=== PATIENT | female | born 1945 | race Caucasian/White ===

== ENCOUNTER 2019-09-28 13:18 | Day surgery (SDC) | payer MEDICARE ==
[~2019-09-28 13:18] MED LIST: Acetaminophen 500 MG TAB PO PRN; Acetaminophen 500 MG TAB PO SCH; Sodium Chloride 0.9% 1,000 ML IV SCH; Vedolizumab 300 MG in Sodium Chloride 0.9% 250 ML 250 ML IVPB SCH
[2019-09-28] MEDS ORDERED: Sodium Chloride 0.9% 20 ML ONE (13:34)
== END 2019-09-28 15:16 | disposition home or self-care (01) ==
LOC: ONC/OP 13:18
PROVIDERS: ATTEND Internal Medicine Gastroenterology
DX: K51.90 Ulcerative colitis, unspecified, without complications (principal); Z88.0 Allergy status to penicillin; Z88.5 Allergy status to narcotic agent
CPT/HCPCS: 96413; J3380; J7050

== ENCOUNTER 2019-12-13 13:51 | Day surgery (SDC) | payer MEDICARE ==
[2019-12-13 16:19] VITALS: BP 126/66; TEMP 98.4
== END 2019-12-13 16:20 | disposition home or self-care (01) ==
LOC: ONC/OP 13:51
PROVIDERS: ATTEND Internal Medicine Gastroenterology
DX: K51.90 Ulcerative colitis, unspecified, without complications (principal); Z88.0 Allergy status to penicillin; Z88.5 Allergy status to narcotic agent
CPT/HCPCS: 96413

== ENCOUNTER 2019-12-27 13:44 | Day surgery (SDC) | payer MEDICARE ==
[2019-12-27 15:29] VITALS: BP 120/70; TEMP 98.2
== END 2019-12-27 15:57 | disposition home or self-care (01) ==
LOC: ONC/OP 13:44
PROVIDERS: ATTEND Internal Medicine Gastroenterology
DX: K51.90 Ulcerative colitis, unspecified, without complications (principal); Z88.0 Allergy status to penicillin; Z88.5 Allergy status to narcotic agent
CPT/HCPCS: 96413

== ENCOUNTER 2020-01-24 15:16 | Day surgery (SDC) | payer MEDICARE ==
[2020-01-24 16:01] VITALS: BP 115/66; TEMP 98.5
== END 2020-01-24 16:03 | disposition home or self-care (01) ==
LOC: ONC/OP 15:16
PROVIDERS: ATTEND Internal Medicine Gastroenterology
DX: K51.90 Ulcerative colitis, unspecified, without complications (principal); Z88.0 Allergy status to penicillin; Z88.5 Allergy status to narcotic agent
CPT/HCPCS: 96413

== ENCOUNTER 2020-03-20 14:07 | Day surgery (SDC) | payer MEDICARE ==
[2020-03-20] MEDS ORDERED: Sodium Chloride 0.9% 20 ML ONE (14:10)
== END 2020-03-20 15:57 | disposition home or self-care (01) ==
LOC: ONC/OP 14:07
PROVIDERS: ATTEND Internal Medicine Gastroenterology
DX: K51.90 Ulcerative colitis, unspecified, without complications (principal); Z88.0 Allergy status to penicillin; Z88.5 Allergy status to narcotic agent; Z91.011 Allergy to milk products
CPT/HCPCS: 96413

== ENCOUNTER 2020-04-29 11:40 | Observation (INO) | payer MEDICARE ==
[2020-04-29 12:45] LABS: Hemoglobin 13.3 g/dL (12.0-16.0); Mean Corpuscular HGB CONC 31.4 g/dL (32.0-36.0); Mean Corpuscular Hemoglobin 27.5 pg (27.0-31.0); Mean Corpuscular Volume 87.7 fL (78.0-98.0); Mean Platelet Volume 7.8 fL (7.4-10.4); Platelet Count 358 thou/uL (130-400); RBC Distribution Width 12.4 % (11.5-14.5); Red Blood Cell (RBC) Count 4.82 mill/uL (4.20-5.40); White Blood Cell (WBC) Count 16.7 thou/uL (4.8-10.8)
[2020-04-29] MEDS ORDERED: Iopamidol-370 76% 500 ML 1 ML ONE (12:53)
[2020-04-29 13:00] LABS: Band 3 % (5-11); Eosinophils 3 % (0-10); Lymphocytes 32 % (21-51); MDiff Complete? YES; Monocytes 4 % (0-10); Neutrophil 58 % (42-75); RBC Morphology Normal
[2020-04-29 13:11] LABS: ALT (SGPT) 14 U/L (8-55); AST (SGOT) 15 U/L (5-34); Albumin 4.2 g/dL (3.4-4.8); Alkaline Phosphatase 126 U/L (40-110); Anion Gap 12 mmol/L (10-20); BUN (Urea Nitrogen) 16 mg/dL (9.8-20.1); Bilirubin, Total 0.3 mg/dL (0.2-1.2); Calc. Creatinine Clearance 0 mL/min (70-130); Calcium 9.7 mg/dL (7.8-10.44); Carbon Dioxide 24 mmol/L (23-31); Chloride 107 mmol/L (98-107); Estimated GFR-MDRD 73; Glucose 81 mg/dL (83-110); Lipase 48 U/L (8-78); Potassium 3.4 mmol/L (3.5-5.1); Protein, Total 8.2 g/dL (6.0-8.3); Sodium 140 mmol/L (136-145)
[2020-04-29 13:53] LABS: Bilirubin Negative (Negative); Blood, Urine Negative (Negative); Clarity Clear (Clear); Glucose, Urine (Dipstick) Normal (Negative); Leukocyte 250 Leu/uL (Negative); Mucous/LPF Rare LPF (<2+); Nitrite Negative (Negative); Protein, Urine (Dipstick) 10 mg/dL (Neg-Trace); RBC/HPF 0-3 HPF (0-3); Squamous Epithelial 0-3 HPF (0-3); Urobilinogen Normal mg/dL (Less than 2)
[2020-04-29 14:05] LABS: Bacteria/HPF None Seen HPF (None Seen)
--- NOTE | 2020-04-29 15:23 | CT ---
CT OF THE ABDOMEN AND PELVIS WITH IV CONTRAST INDICATION: History of ulcerative colitis and abdominal pain COMPARISON: CT the abdomen dated August 24, 2014 FINDINGS: ABDOMEN: Lung bases: Clear Liver: There is stable mild to moderate intrahepatic and extrahepatic biliary ductal dilatation. No f ocal hepatic lesion is evident. Gallbladder: Surgically absent Pancreas: Minimal prominence of the main pancreatic duct is similar to the comparison study. No focal pancreatic lesion is identified. Adrenal glands: Normal. Spleen: Normal. Kidneys and ureters: Bilateral peripelvic cysts are stable. There is interval enlargement of the simp le cyst involving the superior pole left kidney now measuring 1.6 cm were previously measured 9 mm. Vasculature: Normal. Lymph nodes:No lymphadenopathy. Free fluid in abdomen:No free fluid is evident. PELVIS: Small and large bowel: There is prominent wall thickening involving the rectum and the sigmoid colon, descending colon and a majority of the transverse colon consistent patient's history of ulcerative colitis. Appendix:Normal Bladder: Normal. Rectal and perirectal soft tissues:As above Reproductive structures: Surgically absent Free fluid in pelvis: No free fluid is evident. Lymphadenopathy pelvis: No lymphadenopathy is evident. Osseous structures: There is stable bone island within the left aspect of L3. There is diffuse osteop enia. There is a bony hemangioma within the left aspect of T10 which is stable. There are small bone islands involving the proximal right femur which are stable. There is a 5 mm sclerotic density w ithin the right acetabulum which is increased in prominence from the prior exam likely reflecting an additional bone on that has demonstrated some interval growth. There is scattered degenerative an d osteoarthritic changes. Soft tissues:Normal. IMPRESSION: 1. Mild diffuse proctocolitis consistent patient's history of ulcerative colitis. No drainable fluid collection is demonstrated. 2. Other chronic findings as above
[2020-04-29] MEDS ORDERED: methylPREDNISolone Sod Succ/PF 125 MG/2 ML VIAL ONE (15:32)
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
[2020-04-29] MEDS: Lactated Ringer's 1,000 ML IV SCH (18:00)
[2020-04-29 21:49] VITALS: BMI 32.0
[2020-04-29] MEDS ORDERED: Ondansetron ODT 4 MG TAB PO PRN (21:54)
[2020-04-29] MEDS: Acetaminophen 325 MG TAB PO PRN (23:19)
[2020-04-30] MEDS: Lactated Ringer's 1,000 ML IV SCH ×2 (03:00→12:24)
[2020-04-30] MEDS: Acetaminophen 325 MG TAB PO PRN (05:16)
[2020-04-30 05:44] LABS: #Lymphocytes 2.6 thou/uL (1.20-3.40); #Monocytes 0.4 thou/uL (0.11-0.59); #Neutrophils 10.8 thou/uL (1.40-6.50); %Eosinophils 0.1 % (0.0-10.0); %Lymphocytes 18.8 % (21.0-51.0); %Monocytes 2.8 % (0.0-10.0); %Neutrophils 78.3 % (42.0-75.0); Hemoglobin 12.2 g/dL (12.0-16.0); Mean Corpuscular HGB CONC 31.9 g/dL (32.0-36.0); Mean Corpuscular Hemoglobin 27.6 pg (27.0-31.0); Mean Corpuscular Volume 86.4 fL (78.0-98.0); Mean Platelet Volume 8.3 fL (7.4-10.4); Platelet Count 337 thou/uL (130-400); RBC Distribution Width 12.4 % (11.5-14.5); Red Blood Cell (RBC) Count 4.42 mill/uL (4.20-5.40); White Blood Cell (WBC) Count 13.8 thou/uL (4.8-10.8)
[2020-04-30] MEDS ORDERED: PROMETHAZINE HCL PO PRN (06:11)
[2020-04-30] MEDS ORDERED: Promethazine 25 MG TAB PO PRN (06:14)
--- NOTE | 2020-04-30 06:15 | PDOC.FM ---
- Subjective Subjective: Patient was resting comfortably in bed at the time of evaluation. She continued to endorse mild ABD "pressure", but denied any odilon pain, diarrhea, N/V, chest pain or SOB. - Objective Vital Signs & Weight: Vital Signs (12 hours) Temp Pulse Resp BP Pulse Ox 04/30/20 03:53 97.7 F 69 18 125/74 92 L 04/29/20 23:48 98.3 F 65 18 113/65 96 04/29/20 20:00 96 04/29/20 19:55 98.2 F 78 18 123/77 96 Weight Weight 74.298 kg Result Diagrams: 04/30/20 05:25 04/29/20 12:34 Phys Exam - Physical Examination Constitutional: NAD HEENT: moist MMs, oral pharynx no lesions Neck: supple, full ROM Respiratory: no wheezing, no rales, no rhonchi, clear to auscultation bilateral Cardiovascular: RRR, no significant murmur, no rub Gastrointestinal: soft, non-tender, no distention, positive bowel sounds Musculoskeletal: no edema, pulses present Neurological: non-focal, moves all 4 limbs Psychiatric: normal affect Dx/Plan (1) Ulcerative colitis Code(s): K51.90 - ULCERATIVE COLITIS, UNSPECIFIED, WITHOUT COMPLICATIONS Status: Acute Qualifiers: Ulcerative colitis location: ulcerative pancolitis Digestive disease complication type: without complication Qualified Code(s): K51.00 - Ulcerative (chronic) pancolitis without complications (2) Leukocytosis Code(s): D72.829 - ELEVATED WHITE BLOOD CELL COUNT, UNSPECIFIED Status: Acute Qualifiers: Leukocytosis type: unspecified Qualified Code(s): D72.829 - Elevated white blood cell count, unspecified (3) Osteoporosis Code(s): M81.0 - AGE-RELATED OSTEOPOROSIS W/O CURRENT PATHOLOGICAL FRACTURE Status: Chronic Qualifiers: Osteoporosis type: age-related Presence of current pathological fracture: without current pathological fracture Qualified Code(s): M81.0 - Age-related osteoporosis without current pathological fracture (4) Blindness Code(s): H54.7 - UNSPECIFIED VISUAL LOSS Status: Chronic Qualifiers: Right eye visual impairment category: right - unspecified blindness Left eye visual impairment category: left - unspecified blindness Qualified Code(s) : H54.3 - Unqualified visual loss, both eyes - Plan Plan: Patient is a 74 y/o female with a PMH significant for Ulcerative Colitis who presents to the ED for evaluation of ABD Pain. 1. Ulcerative Colitis Flare -Benign physical exam with VSS -WBCs: 16.7 on presentation > 13.8 on 04/30 -CRP: 0.69 -ESR: 80 -CT ABD/Pelvis: Mild Proctocolitis to Transverse Colon, c/w UC Flare -Stool Studies: Pending -UCx: Pending -s/p 1L NS and Methylprednisolone 125 mg IV in ED - will initiate Methylprednisolone 40 mg Q8H on 04/30/2020 per GI recs -GI: Consulted, recs appreciated 2. Osteoporosis -Patient denies recent falls or trauma -Will continue home medication regimen 3. Blindess (Bilaterall) -Stable -Ambulate w/ Assist -Fall Precautions PCP: Dr. Gupta ([facility]) Code: DNAR Diet: Heart Healthy Activity: Ambulate w/ Assist IVF: LR @ 100 ml/hr VTE PPx: SCDs Dispo: Patient is currently stable and admitted to the Medical Floor for ongoing treatment of likely UC Flare. Will continue with steroids and IVF and await lab/culture results as per above. GI consulted, recs appreciated - may require FlexSig during this hospitalization. Expected LOS < 48H.
[2020-04-30] MEDS ORDERED: Non-Formulary Item 1 EACH (Omeprazole [Omeprazole] 1 TAB) PO SCH (09:00)
[2020-04-30] MEDS ORDERED: Ergocalciferol 1.25 MG(50,000 UNITS) CAP PO SCH (09:00)
[2020-04-30] MEDS: Ergocalciferol 1.25 MG(50,000 UNITS) CAP PO SCH ×2 (09:50→10:03)
[2020-04-30] MEDS: Potassium Chloride 20 MEQ TAB PO SCH (09:50)
[2020-04-30] MEDS: methylPREDNISolone Sod Succ 40 MG VIAL IVP SCH (15:25)
[2020-04-30 20:35] VITALS: TEMP 98.2
[2020-05-01] MEDS: Lactated Ringer's 1,000 ML IV SCH (00:30)
[2020-05-01] MEDS: methylPREDNISolone Sod Succ 40 MG VIAL IVP SCH ×2 (00:30→08:41)
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
--- NOTE | 2020-05-01 05:39 | PDOC.FM ---
- Subjective Subjective: Patient was resting comfortably in her bed, finishing her breakfast, at the time of evaluation. Patient denied any acute overnight events, to include worsening ABD pain, N/V/D. Patient stated that the "pressure" in her ABD was greatly reduced from her initial presentation, and stated that she barely even noticed in this AM. - Objective Vital Signs & Weight: Vital Signs (12 hours) Temp Pulse Resp BP Pulse Ox 04/30/20 20:00 98.2 F 73 18 114/72 96 Weight Weight 74.298 kg Result Diagrams: 05/01/20 06:26 05/01/20 06:26 Phys Exam - Physical Examination Constitutional: NAD HEENT: moist MMs, sclera anicteric, oral pharynx no lesions Neck: supple, full ROM Respiratory: no wheezing, no rales, no rhonchi, clear to auscultation bilateral Cardiovascular: RRR, no significant murmur, no rub Gastrointestinal: soft, non-tender, no distention, positive bowel sounds Musculoskeletal: no edema, pulses present Neurological: non-focal, moves all 4 limbs Psychiatric: normal affect Skin: no rash Dx/Plan (1) Ulcerative colitis Code(s): K51.90 - ULCERATIVE COLITIS, UNSPECIFIED, WITHOUT COMPLICATIONS Status: Acute Qualifiers: Ulcerative colitis location: ulcerative pancolitis Digestive disease complication type: without complication Qualified Code(s): K51.00 - Ulcerative (chronic) pancolitis without complications (2) Leukocytosis Code(s): D72.829 - ELEVATED WHITE BLOOD CELL COUNT, UNSPECIFIED Status: Acute Qualifiers: Leukocytosis type: unspecified Qualified Code(s): D72.829 - Elevated white blood cell count, unspecified (3) Osteoporosis Code(s): M81.0 - AGE-RELATED OSTEOPOROSIS W/O CURRENT PATHOLOGICAL FRACTURE Status: Chronic Qualifiers: Osteoporosis type: age-related Presence of current pathological fracture: without current pathological fracture Qualified Code(s): M81.0 - Age-related osteoporosis without current pathological fracture (4) Blindness Code(s): H54.7 - UNSPECIFIED VISUAL LOSS Status: Chronic Qualifiers: Right eye visual impairment category: right - unspecified blindness Left eye visual impairment category: left - unspecified blindness Qualified Code(s) : H54.3 - Unqualified visual loss, both eyes - Plan Plan: Patient is a 74 y/o female with a PMH significant for Ulcerative Colitis who presents to the ED for evaluation of ABD Pain. 1. Ulcerative Colitis Flare -Benign physical exam with VSS -WBCs: 16.7 on presentation > 13.8 on 04/30 -CRP: 0.69 -ESR: 80 -CT ABD/Pelvis: Mild Proctocolitis to Transverse Colon, c/w UC Flare -Stool Studies: Negative for E. coli, Shiga, Campy, C. diff - Ova & Parasites still pending -UCx: NGTD -s/p 1L NS and Methylprednisolone 125 mg IV in ED - will initiate Methylprednisolone 40 mg Q8H on 04/30/2020 per GI recs -Will plan to transition to PO steroids later today -GI: Consulted, recs appreciated 2. Osteoporosis -Patient denies recent falls or trauma -Will continue home medication regimen 3. Blindness (Bilateral) -Stable -Ambulate w/ Assist -Fall Precautions PCP: Dr. Gupta ([facility]) Code: DNAR Diet: Low Fiber Activity: Ambulate w/ Assist IVF: None VTE PPx: SCDs Dispo: Patient is currently stable and admitted to the Medical Floor for ongoing treatment of likely UC Flare. Will continue with steroids and and await lab/culture results as per above. GI consulted, recs appreciated - may require FlexSig during this hospitalization. Plan for transition to PO steroids later today after coordination with GI. Expected LOS < 24H.
[2020-05-01 06:58] LABS: #Monocytes 0.2 thou/uL (0.11-0.59); #Neutrophils 8.9 thou/uL (1.40-6.50); %Basophils 0.1 % (0.0-1.0); %Eosinophils 0.2 % (0.0-10.0); %Lymphocytes 18.1 % (21.0-51.0); %Monocytes 1.6 % (0.0-10.0); %Neutrophils 79.9 % (42.0-75.0); Hemoglobin 12.3 g/dL (12.0-16.0); Mean Corpuscular HGB CONC 31.6 g/dL (32.0-36.0); Mean Corpuscular Hemoglobin 27.9 pg (27.0-31.0); Mean Corpuscular Volume 88.4 fL (78.0-98.0); Mean Platelet Volume 8.3 fL (7.4-10.4); Platelet Count 309 thou/uL (130-400); RBC Distribution Width 12.6 % (11.5-14.5); Red Blood Cell (RBC) Count 4.42 mill/uL (4.20-5.40); White Blood Cell (WBC) Count 11.2 thou/uL (4.8-10.8)
[2020-05-01 07:26] LABS: Anion Gap 15 mmol/L (10-20); BUN (Urea Nitrogen) 17 mg/dL (9.8-20.1); Calc. Creatinine Clearance 82 mL/min (70-130); Carbon Dioxide 23 mmol/L (23-31); Chloride 107 mmol/L (98-107); Estimated GFR-MDRD 78; Glucose 136 mg/dL (83-110); Sodium 141 mmol/L (136-145)
[2020-05-01] MEDS ORDERED: predniSONE 20 MG TAB PO SCH (08:00)
[2020-05-01] MEDS: Potassium Chloride 20 MEQ TAB PO SCH (08:40)
[2020-05-01] MEDS: Ergocalciferol 1.25 MG(50,000 UNITS) CAP PO SCH (08:41)
--- NOTE | 2020-05-01 11:50 | PRG ---
DATE OF SERVICE: SUBJECTIVE: The patient complains having some mild upper abdominal pressure. Overall, her pain is much better compared to admission. There is no nausea or vomiting. She has had one episode of loose stool early this morning. PHYSICAL EXAMINATION: VITAL SIGNS: Temperature 98.2, blood pressure 114/72, pulse of 73. GENERAL: She is alert and conversant. HEENT: Shows anicteric sclerae. Oropharynx is clear. CV: Shows normal S1, S2. Regular rate and rhythm. CHEST: Shows breath sounds. ABDOMEN: Mildly protuberant, but soft. No tenderness elicited. No tympany or distention. She has active bowel sounds. EXTREMITIES: Show no edema. LABORATORY DATA: WBC is 11.2, down from 16.7; hemoglobin 12.3; and platelet count of 309. Electrolytes within normal range, creatinine 0.73. Stool studies, C diff negative. Culture for E coli negative. Campylobacter antigen and shiga toxin negative and stool culture showed normal enteric cameron. ASSESSMENT: Seo-ulcerative colitis flare, clinically improved on corticosteroid therapy. Her IV came out last night. CT does not show any complicated finding. The patient was started on Entyvio, and trough drug level and antibody testing are still pending. RECOMMENDATION: 1. The patient can be discharged to home on prednisone taper to start at 40 mg daily for 7 days, then taper down by 10 mg daily every 7 days. 2. Follow up with Dr. Vallecillo as outpatient within 7 to 10 days. Depending on trough level and antibody testing, Dr. Vallecillo would determine to resume Entyvio treatment or change biologic. 3. The patient can be discharged to home from GI standpoint today. Job ID: [id number] [facility]
[2020-05-01 19:28] VITALS: BP 130/70
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
== END 2020-05-01 17:04 | disposition home or self-care (01) ==
LOC: ERS 11:40 → T4-A 15:56 → INTOOBSV 15:56
PROVIDERS: ADMIT Family Medicine; ATTEND Family Medicine
DX: K51.00 Ulcerative (chronic) pancolitis without complications (principal); M81.0 Age-related osteoporosis without current pathological fracture; H54.3 Unqualified visual loss, both eyes; D72.829 Elevated white blood cell count, unspecified; K21.9 Gastro-esophageal reflux disease without esophagitis; E55.9 Vitamin D deficiency, unspecified; Z66 Do not resuscitate; Z79.83 Long term (current) use of bisphosphonates; Z79.899 Other long term (current) drug therapy; Z88.0 Allergy status to penicillin; Z88.5 Allergy status to narcotic agent; Z88.6 Allergy status to analgesic agent
CPT/HCPCS: 36415; 74177; 80048; 80053; 81003; 81015; 83690; 85025; 85652; 86140; 87045; 87046; 87086; 87324; 87328; 87329; 87427; 87449; 96361; 96374; 96375; G0378; J2920; J2930; J7512; Q9967

== ENCOUNTER 2020-05-15 14:16 | Day surgery (SDC) | payer MEDICARE ==
[2020-05-15 14:53] VITALS: BP 134/79; TEMP 97.9
== END 2020-05-15 15:45 | disposition home or self-care (01) ==
LOC: ONC/OP 14:16
PROVIDERS: ATTEND Internal Medicine Gastroenterology
DX: K51.90 Ulcerative colitis, unspecified, without complications (principal); Z88.0 Allergy status to penicillin; Z88.5 Allergy status to narcotic agent; Z88.6 Allergy status to analgesic agent
CPT/HCPCS: 96413

== ENCOUNTER 2020-07-10 14:06 | Day surgery (SDC) | payer MEDICARE ==
[2020-07-10] MEDS ORDERED: Sodium Chloride 0.9% 20 ML ONE (14:16)
== END 2020-07-10 15:51 | disposition home or self-care (01) ==
LOC: ONC/OP 14:06
PROVIDERS: ATTEND Internal Medicine Gastroenterology
DX: K51.90 Ulcerative colitis, unspecified, without complications (principal); Z88.0 Allergy status to penicillin; Z88.5 Allergy status to narcotic agent; Z88.6 Allergy status to analgesic agent
CPT/HCPCS: 96413

== ENCOUNTER 2021-06-13 06:51 | Observation (INO) | payer MEDICARE ==
[2021-06-12 15:13] VITALS: BMI 27.5
[2021-06-13] MEDS ORDERED: Indomethacin 50 MG SUPP ONE (08:27)
[2021-06-13] MEDS ORDERED: Iothalamate Meglumine 60% 30 ML VIAL FS ONE (08:28)
[2021-06-13] MEDS ORDERED: Fentanyl 100 MCG/2 ML VIAL ONE (08:37)
[2021-06-13] MEDS ORDERED: PROPOFOL 200 MG/20 ML VIAL ONE (08:51)
[2021-06-13] MEDS ORDERED: Lidocaine 1% PF 5 ML VIAL ONE (08:51)
[2021-06-13] MEDS ORDERED: Rocuronium Bromide 10 MG/ML (10ML VIAL) ONE (08:51)
[2021-06-13] MEDS ORDERED: Dexamethasone 20 MG/5 ML VIAL ONE (08:51)
[2021-06-13] MEDS ORDERED: PHENYLEPHRINE-NS 100 MCG/ML 10 ML SYRINGE ONE (08:51)
[2021-06-13] MEDS ORDERED: Glycopyrrolate 0.2 MG/ML 5 ML SYRINGE ONE (08:51)
[2021-06-13] MEDS ORDERED: Ondansetron PF 4 MG/2 ML Vial ONE (08:51)
[2021-06-13] MEDS ORDERED: Ondansetron HCl/PF 4 MG/2 ML Vial IVP PRN (10:13)
[2021-06-13] MEDS ORDERED: Promethazine HCl 25 MG/ML VIAL IM PRN (10:13)
[2021-06-13] MEDS ORDERED: PACU-Morphine 4MG/ML VIAL SLOW IVP PRN (10:13)
[2021-06-13] MEDS ORDERED: HYDROmorphone 2 MG/ML VIAL SLOW IVP PRN (10:13)
[2021-06-13] MEDS ORDERED: Promethazine HCl 25 MG/ML VIAL IVPB PRN (10:13)
[2021-06-13] MEDS ORDERED: Morphine 2 MG/ML VIAL ONE (10:24)
[2021-06-13] MEDS ORDERED: Promethazine HCl 25 MG/ML VIAL ONE (10:24)
[2021-06-13] MEDS ORDERED: Ondansetron PF 4 MG/2 ML Vial IVP PRN (14:36)
[2021-06-13] MEDS: Loperamide HCl 2 MG CAP PO PRN ×2 (17:59→20:19)
[2021-06-13] MEDS: traMADol HCl 50 MG TAB PO PRN (20:14)
[2021-06-13] MEDS: Acetaminophen 325 MG TAB PO PRN (21:06)
[2021-06-13] MEDS: Sotalol HCl 80 MG TAB PO SCH (21:06)
[2021-06-14] MEDS: Acetaminophen 325 MG TAB PO PRN ×2 (04:18→10:08)
[2021-06-14 05:01] LABS: #Lymphocytes 2.3 thou/uL (1.20-3.40); #Monocytes 0.7 thou/uL (0.11-0.59); #Neutrophils 7.6 thou/uL (1.40-6.50); %Basophils 0.2 % (0.0-1.0); %Eosinophils 0.2 % (0.0-10.0); %Monocytes 6.1 % (0.0-10.0); %Neutrophils 71.5 % (42.0-75.0); Mean Corpuscular HGB CONC 32.5 g/dL (32.0-36.0); Mean Corpuscular Hemoglobin 27.6 pg (27.0-31.0); Platelet Count 234 thou/uL (130-400); RBC Distribution Width 11.8 % (11.5-14.5); Red Blood Cell (RBC) Count 3.63 mill/uL (4.20-5.40); White Blood Cell (WBC) Count 10.7 thou/uL (4.8-10.8)
[2021-06-14 05:17] LABS: ALT (SGPT) 32 U/L (8-55); AST (SGOT) 29 U/L (5-34); Albumin 3.4 g/dL (3.4-4.8); Alkaline Phosphatase 251 U/L (40-110); Anion Gap 11 mmol/L (10-20); BUN (Urea Nitrogen) 16 mg/dL (9.8-20.1); Bilirubin, Total 0.4 mg/dL (0.2-1.2); Calc. Creatinine Clearance 67 mL/min (70-130); Calcium 9.3 mg/dL (7.8-10.44); Carbon Dioxide 26 mmol/L (23-31); Chloride 106 mmol/L (98-107); Globulin 2.9 g/dL (2.4-3.5); Glucose 108 mg/dL (83-110); Lipase 50 U/L (8-78); Potassium 4.6 mmol/L (3.5-5.1); Protein, Total 6.3 g/dL (5.8-8.1); Sodium 138 mmol/L (136-145)
[2021-06-14] MEDS: Loperamide HCl 2 MG CAP PO PRN ×2 (07:02→10:08)
[2021-06-14] MEDS: traMADol HCl 50 MG TAB PO PRN (08:37)
[2021-06-14] MEDS: Sotalol HCl 80 MG TAB PO SCH (08:38)
[2021-06-14 09:12] VITALS: BP 109/51; TEMP 98.1
== END 2021-06-14 11:50 | disposition home or self-care (01) ==
LOC: SDC 06:51 → 2NO 10:21
PROVIDERS: ADMIT Internal Medicine Gastroenterology; ATTEND Internal Medicine Gastroenterology
PROC: 0F9C80Z Drainage of Ampulla of Vater with Drainage Device, Via Natural or Artificial Opening Endoscopic (ICD-10-PCS; principal; 2021-06-13)
DX: K83.1 Obstruction of bile duct (principal); K83.8 Other specified diseases of biliary tract; K21.9 Gastro-esophageal reflux disease without esophagitis; I48.91 Unspecified atrial fibrillation; M19.90 Unspecified osteoarthritis, unspecified site; Z88.0 Allergy status to penicillin; Z88.5 Allergy status to narcotic agent; Z88.6 Allergy status to analgesic agent; Z91.018 Allergy to other foods; Z91.02 Food additives allergy status; Z79.01 Long term (current) use of anticoagulants; Z79.899 Other long term (current) drug therapy; Z90.49 Acquired absence of other specified parts of digestive tract; Z87.891 Personal history of nicotine dependence; Z98.890 Other specified postprocedural states; Z90.711 Acquired absence of uterus with remaining cervical stump
CPT/HCPCS: 43262; 74330; 80053; 83690; 85025; C1769; J2270; 36415; G0378; J1100; J2405; J2550; J2704; J3010

== ENCOUNTER 2022-04-15 12:50 | Outpatient (CLI) | payer MEDICARE ==
[2022-04-15 13:36] LABS: Hemoglobin 11.4 g/dL (12.0-15.5); Mean Corpuscular Hemoglobin 25.2 pg (27.0-33.0); Mean Corpuscular Volume 81.4 fl (81.6-98.3); Platelet Count 337 10x3/uL (150-450); RBC Distribution Width 14.3 % (11.5-14.5); Red Blood Cell (RBC) Count 4.52 10x6/uL (3.90-5.03); White Blood Cell (WBC) Count 10.2 10x3/uL (3.5-10.5)
[2022-04-15 13:58] LABS: ALT (SGPT) 34 U/L (8-55); AST (SGOT) 33 U/L (5-34); Albumin 4.3 g/dL (3.4-4.8); Alkaline Phosphatase 171 U/L (40-110); Anion Gap 13 mmol/L (10-20); BUN (Urea Nitrogen) 25 mg/dL (9.8-20.1); Bilirubin, Total 0.3 mg/dL (0.2-1.2); Calc. Creatinine Clearance 0 mL/min (70-130); Calcium 9.6 mg/dL (7.8-10.44); Carbon Dioxide 20 mmol/L (23-31); Chloride 110 mmol/L (98-107); Globulin 3.1 g/dL (2.4-3.5); Glucose 76 mg/dL (83-110); Potassium 4.2 mmol/L (3.5-5.1); Protein, Total 7.4 g/dL (5.8-8.1); Sodium 139 mmol/L (136-145)
[2022-04-16 00:16] LABS: SARS-CoV-2 PCR by NAA Not Detected (NotDetected)
== END 2022-04-15 12:51 | disposition home or self-care (01) ==
LOC: LABBT 12:50
PROVIDERS: ATTEND Family Medicine
DX: Z01.818 Encounter for other preprocedural examination (principal); K43.2 Incisional hernia without obstruction or gangrene; Z20.822 Contact with and (suspected) exposure to COVID-19
CPT/HCPCS: 80053; 85027; U0003; U0005

== ENCOUNTER 2022-04-20 08:04 | Observation (INO) | payer MEDICARE ==
[2022-04-20] MEDS ORDERED: HYDROmorphone 0.5 MG/0.5 ML SYRINGE ONE ×2 (09:12→12:46)
[2022-04-20] MEDS ORDERED: fentaNYL Citrate/PF 100 MCG/2 ML SYRINGE ONE (09:12)
[2022-04-20] MEDS ORDERED: Lidocaine 1% w/Epinephrine 1:100K 20 ML VIAL ONE (09:15)
[2022-04-20] MEDS ORDERED: CEFAZOLIN 2 GM VIAL ONE (09:21)
[2022-04-20] MEDS ORDERED: Sodium Chloride 0.9% 100 ML ONE (09:21)
[2022-04-20] MEDS ORDERED: PROPOFOL 200 MG/20 ML VIAL ONE (09:42)
[2022-04-20] MEDS ORDERED: Lidocaine 1% PF 5 ML VIAL ONE (09:42)
[2022-04-20] MEDS ORDERED: Ondansetron PF 4 MG/2 ML Vial ONE ×2 (09:42→14:23)
[2022-04-20] MEDS ORDERED: Glycopyrrolate 0.2 MG/ML 5 ML SYRINGE ONE (09:42)
[2022-04-20] MEDS ORDERED: Dexamethasone 20 MG/5 ML VIAL ONE (09:42)
[2022-04-20] MEDS ORDERED: ePHEDrine 50 MG/ML VIAL ONE (09:42)
[2022-04-20] MEDS ORDERED: Rocuronium Bromide 10 MG/ML (10ML VIAL) ONE (09:42)
[2022-04-20] MEDS ORDERED: Bupivacaine 0.25% HCL 30 ML VIAL ONE (09:45)
[2022-04-20] MEDS ORDERED: Fentanyl 100 MCG/2 ML VIAL ONE (12:27)
[2022-04-20] MEDS ORDERED: Meperidine HCl/PF 25 MG/ML VIAL ONE (14:24)
[2022-04-20] MEDS ORDERED: HYDROcodone/Acetaminophen 5/325 mg Tablet ONE (15:12)
[2022-04-20] MEDS ORDERED: Gabapentin 300 MG CAP ONE (16:11)
[2022-04-20] MEDS ORDERED: Morphine 2 MG/ML VIAL ONE (17:08)
[2022-04-20] MEDS ORDERED: hydrALAZINE 20 MG/ML VIAL SLOW IVP PRN (18:27)
[2022-04-20] MEDS ORDERED: Mag-Al 1200 mg/1200 mg/30 ML UDCUP PO PRN (18:27)
[2022-04-20] MEDS ORDERED: Ondansetron PF 4 MG/2 ML Vial IVP PRN (18:27)
[2022-04-20] MEDS ORDERED: Calcium Carbonate 500 MG ChewTAB PO PRN (18:27)
[2022-04-20] MEDS ORDERED: Dextrose 50% Abboject 50 ML SYRINGE SLOW IVP PRN (18:27)
[2022-04-20] MEDS ORDERED: Promethazine HCl 25 MG/ML VIAL IM PRN (18:27)
[2022-04-20] MEDS ORDERED: Dextrose 5% in Water 1,000 ML IV PRN (18:27)
[2022-04-20] MEDS: Famotidine 20 MG TAB PO SCH (20:28)
[2022-04-20] MEDS: Gabapentin 300 MG CAP PO SCH (20:28)
[2022-04-20] MEDS: Sotalol HCl 80 MG TAB PO SCH (20:28)
[2022-04-20] MEDS: Morphine 2 MG/ML VIAL SLOW IVP PRN (20:29)
[2022-04-20] MEDS: D5 1/2 NS w/20 mEq KCL 1,000 ML IV SCH (20:30)
[2022-04-20] MEDS: Famotidine/PF 20 mg/2ml Vial SLOW IVP SCH (21:19)
[2022-04-20] MEDS: HYDROcodone/Acetaminophen 10/325 mg Tablet PO PRN (23:07)
[2022-04-20] MEDS: Ketorolac Tromethamine 30 MG/ML VIAL IVP SCH (23:07)
[2022-04-21] MEDS: Morphine 2 MG/ML VIAL SLOW IVP PRN (02:53)
[2022-04-21] MEDS: Ketorolac Tromethamine 30 MG/ML VIAL IVP SCH ×2 (05:31→12:12)
[2022-04-21] MEDS: Gabapentin 300 MG CAP PO SCH ×2 (10:34→14:55)
[2022-04-21] MEDS: Sotalol HCl 80 MG TAB PO SCH (10:34)
[2022-04-21] MEDS: Famotidine 20 MG TAB PO SCH (10:43)
[2022-04-21] MEDS: HYDROcodone/Acetaminophen 10/325 mg Tablet PO PRN ×2 (10:47→14:53)
[2022-04-21] MEDS: Famotidine/PF 20 mg/2ml Vial SLOW IVP SCH (10:48)
[2022-04-21 13:06] VITALS: BP 92/63; TEMP 98
[2022-04-21] MEDS: D5 1/2 NS w/20 mEq KCL 1,000 ML IV SCH (14:35)
[2022-04-21 16:23] VITALS: BMI 31.1
== END 2022-04-21 16:32 | disposition home or self-care (01) ==
LOC: SDC 08:04 → SJJU 16:50
PROVIDERS: ADMIT Surgery; ATTEND Surgery
PROC: 0WUF4JZ Supplement Abdominal Wall with Synthetic Substitute, Percutaneous Endoscopic Approach (ICD-10-PCS; principal; 2022-04-20)
PROC: 8E0W4CZ Robotic Assisted Procedure of Trunk Region, Percutaneous Endoscopic Approach (ICD-10-PCS; 2022-04-20)
DX: K43.2 Incisional hernia without obstruction or gangrene (principal); K66.0 Peritoneal adhesions (postprocedural) (postinfection); G89.18 Other acute postprocedural pain; I48.0 Paroxysmal atrial fibrillation; Z79.01 Long term (current) use of anticoagulants; Z79.899 Other long term (current) drug therapy; Z88.0 Allergy status to penicillin; Z88.5 Allergy status to narcotic agent; Z88.6 Allergy status to analgesic agent; Z91.018 Allergy to other foods; Z90.49 Acquired absence of other specified parts of digestive tract
CPT/HCPCS: 49654; C1781; J2270 ×2; 96374; 96375; 96376; G0378; J1100; J1170; J1885; J2175; J2405; J2704; J3010; J3480; J3490; S0020